=== PATIENT | female | born 1940 | race Two or more races ===

== ENCOUNTER 2022-01-15 12:54 | Inpatient (IN) | payer MEDICARE ==
[~2022-01-15] VITALS: Ht 175.3 cm; Wt 65.8 kg
[~2022-01-15 12:54] MED LIST: CITA40TA11 PO; DIGO125T PO; LEVO500T23 PO; LEVO75TA7 PO; LOSA100T31 PO; POTA10CA43 PO; TRAZ-182 PO; WARF2.5T85 PO
--- NOTE | 2022-01-15 13:14 | NUR ---
BIBRA99 FROM HOME, WEAK, UNABLE TO GET OUT OF BED X 2 DAYS PER BROTHER. PT IS A&OX2, ATTCHED TO MONITOR. WARM BLNKAET PROVIDED FOR COMFORT. AWAITING MD CHADWICK.
--- NOTE | 2022-01-15 13:19 | NUR ---
IV ESTABLISHED L AC 18G. LABS DRAW AND SENT.
--- NOTE | 2022-01-15 13:47 | NUR ---
URINE COLLECTED AND SENT
--- NOTE | 2022-01-15 13:47 | NUR ---
SEAN COLLECTED AND SENT
[2022-01-15 14:12] LABS: HEMATOCRIT 42 % (33-45); HEMOGLOBIN 14.1 g/dL (11.5-14.8); LYMPHOCYTES # (AUTO) 0.5 K/uL (0.8-4.8); LYMPHOCYTES % (AUTO) 2.5 % (20.0-44.0); MEAN CORPUSCULAR HGB CONC 34 g/dl (31.0-36.0); MEAN CORPUSCULAR VOLUME 92 fL (82-100); MONOCYTES # (AUTO) 0.9 K/uL (0.1-1.30); MONOCYTES % (AUTO) 4.7 % (2.0-12.0); NEUTROPHILS # (AUTO) 17.2 K/uL (1.8-8.9); NEUTROPHILS % (AUTO) 92.8 % (43.0-81.0); PLATELET COUNT (AUTO) 222 K/uL (150-450); RED BLOOD CELL COUNT(AUTO) 4.56 MIL/uL (4.0-5.2); WHITE BLOOD COUNT (AUTO) 18.5 K/uL (4.3-11.0)
--- NOTE | 2022-01-15 14:19 | NUR ---
DR HEATH AT BEDSIDE
[2022-01-15 14:29] LABS: ALANINE AMINOTRANSFERASE 11 U/L (12-78); ALBUMIN 3.2 g/dL (3.4-5.0); ALKALINE PHOSPHATASE 119 U/L (46-116); ASPARTATE AMINOTRANSFERASE 13 U/L (15-37); BILIRUBIN,DIRECT 0.5 mg/dL (0.0-0.2); BILIRUBIN,TOTAL 1.4 mg/dL (0.2-1.0); CARBON DIOXIDE 30 mmol/L (21-32); CHLORIDE 94 mmol/L (98-107); CREATININE 1.7 mg/dL (0.6-1.3); GLUCOSE 270 mg/dL (74-106); LIPASE 63 U/L (73-393); SODIUM SERUM 136 mmol/L (136-145); TOTAL PROTEIN, SERUM 8.2 g/dL (6.4-8.2); UREA NITROGEN, BLOOD 29 mg/dL (7-18)
[2022-01-15 14:31] LABS: POTASSIUM 2.2 mmol/L (3.5-5.1)
[2022-01-15 14:31] LABS: BILIRUBIN,URINE SMALL (NEGATIVE); COLOR,URINE DARK YELLOW (YELLOW); LEUKOCYTE ESTERASE ,URINE NEGATIVE (NEGATIVE); NITRITE, URINE NEGATIVE (NEGATIVE); PROTEIN,URINE 100 mg/dl (NEGATIVE); UGLUCOSE NEGATIVE (NEGATIVE)
[2022-01-15] MEDS ORDERED: BENA5TAB5 PO (14:45)
[2022-01-15] MEDS ORDERED: ESCI10TA PO (14:45)
[2022-01-15] MEDS ORDERED: MEMA1CAP3 PO (14:45)
[2022-01-15] MEDS ORDERED: POTASSIUM CL. PREMIX PERIPHER. 100 ML ONE ×2 (14:46→17:49)
[2022-01-15 15:02] LABS: THYROID STIMULATING HORMONE 0.842 uIU/mL (0.358-3.74)
[2022-01-15] MEDS: POTASSIUM CL. PREMIX PERIPHER. 50 ML IV SCH ×4 (15:02→18:11)
[2022-01-15 15:04] LABS: BACTERIA,URINE Few /HPF (None Seen); SQUAMOUS EPITHELIAL CELL,UR Rare /HPF (None Seen); WBC,URINE NONE SEEN /HPF (0-3)
[2022-01-15] MEDS ORDERED: POTASSIUM CHLORIDE 20 MEQ TAB.PRT.SR PO ONE ×2 (17:00→21:44)
[2022-01-15] MEDS ORDERED: ONDANSETRON HCL/PF 4 MG/2 ML VIAL IVP PRN (17:30)
[2022-01-15] MEDS ORDERED: TEMAZEPAM 15 MG CAPSULE PO PRN (17:30)
[2022-01-15] MEDS ORDERED: IV NS 0.9% 1,000 ML IV PRN (17:30)
[2022-01-15] MEDS ORDERED: MAGNESIUM HYDROXIDE 30 ML UDC PO PRN (17:30)
[2022-01-15] MEDS ORDERED: Z GUARD REMEDY 4 OZ OINT TP PRN (17:30)
[2022-01-15] MEDS ORDERED: MAG HYDROX/AL HYDROX/SIMETH 30 ML UDC PO PRN (17:30)
[2022-01-15] MEDS ORDERED: VANCOMYCIN 1 GM in IV D5W 250 ML IV ONE (18:00)
[2022-01-15] MEDS ORDERED: PIPERACILLIN /TAZOBACTAM 3.375 G in IV D5W 50 ML IV ONE (18:00)
[2022-01-15] MEDS ORDERED: IV NS 0.9% 1,000 ML BAG IV ONE (18:00)
[2022-01-15 18:04] LABS: ABG BASE EXCESS 5.4 mmol/L; ABG PH 7.514 (7.350-7.450); ABG PO2 71.7 mmHg (75.0-100.0); COHb 0.4 % (0.5-1.5); MetHb 0.5 % (0.0-1.5); O2Hb 94.4 % (94.0-97.0); SITE, ABG Right Radial; VENT MODE, BG ROOM AIR
--- NOTE | 2022-01-15 19:03 | NUR ---
HARDIK (NEPHEW AND POA) [phone]
--- NOTE | 2022-01-15 20:50 | NUR ---
REPORT GIVEN TO GABE
[2022-01-15 21:00] VITALS: BP 165/96
[2022-01-15] MEDS ORDERED: ENOXAPARIN SODIUM 30 MG/0.3 ML DISP.SYRIN SQ SCH (21:00)
[2022-01-15 21:03] VITALS: BP 165/96
--- NOTE | 2022-01-15 21:08 | NUR ---
PT TRANSPORTED TO ROOM ON RIBBON WEAVER VIA GURNEY VIA ACLS PROTOCOL IN STABLE CONDITION
--- NOTE | 2022-01-15 21:10 | NUR ---
TELE/MOTOR PATROL OPERATOR NOTE RECEIVED FROM Megha @0312 TO [id number] VIA ANGELA ACCOMPANIED BY RN/STAFF. DX: FAILURE TO THRIVE, HYPOKALEMIA, AND ARIS. PT AWAKE, A/OX2, WITH CONFUSION, KNOWS PERSON AND PLACE, DOES NOT KNOW WHY SHE'S IN THE HOSPITAL. REORIENTATION PROVIDED. PT ON ROOM AIR, O2 SAT 95%. RESPIRATIONS EVEN/UNLABORED. NOTED IV ACCESS ON L-FA #20G AND L-AC #18G BOTH INTACT/PATENT/FLUSHES WELL. SKIN WARM AND DRY; SLIGHT REDNESS ON SACRAL AREA, OTHERWISE, SKIN IS INTACT. PLACED ON TELE MONITOR, WITH READING OF AFIB CONTROLLED, HR 105. PT IN NO ACUTE DISTRESS. SAFETY MEASURES IN PLACE, BED IN LOWEST LOCKED POSITION, S/R UPX2, CALL LIGHT WITHIN REACH. WILL CONT TO MONITOR.
[2022-01-15] MEDS: IV NS 0.9% 1,000 ML IV PRN (21:35)
[2022-01-15] MEDS ORDERED: hydrALAZINE HCL IV 20 MG VIAL IV ONE (23:30)
--- NOTE | 2022-01-15 23:34 | NUR ---
RN NOTE PT'S BP UPON ADMISSION 165/96, UPON RE-CHECK: 188/100. ON-CALL DNP EJ WITH ORDER FOR HYDRALAZINE 10MG IV X1, NOTED AND ADMINISTERED ORDERED.
[2022-01-16] VITALS (7 sets, daily range): BP systolic 133–173; BP diastolic 84–107
--- NOTE | 2022-01-16 00:46 | NUR ---
RN NOTE BP 133/84, HR 146, SHOWING AFIB UNCONTROLLED ON MONITOR. STAT EKG ORDERED. PT AWAKE AND VERBAL, RESPIRATIONS EVEN/UNLABORED. WILL CONT TO MONITOR.
--- NOTE | 2022-01-16 01:11 | NUR ---
RN NOTE EKG DONE AND SENT TO ON-CALL KAROLINE EVANGELISTA
--- NOTE | 2022-01-16 01:50 | NUR ---
RN NOTE CALLED EPIC GROUP/PAGED ON-CALL BERINE PAGAN DNP
--- NOTE | 2022-01-16 02:27 | NUR ---
RN NOTE ON-CALL BERNIE PAGAN CALLED BACK, AND INFORMED RE PT HAVING A-FIB UNCONTROLLED 120'S-140'S AT THIS TIME. HE SAID, "I'LL TAKE CARE OF IT."
--- NOTE | 2022-01-16 03:20 | NUR ---
RN NOTE HR 103-117. PT SLEEPING SOUNDLY AT THIS TIME. WILL CONT TO MONITOR.
[2022-01-16 06:16] LABS: BASOPHILS % (AUTO) 0.1 % (0.0-2.0); EOSINOPHILS % (AUTO) 0.1 % (0.0-6.0); HEMATOCRIT 37 % (33-45); HEMOGLOBIN 12.3 g/dL (11.5-14.8); LYMPHOCYTES # (AUTO) 0.7 K/uL (0.8-4.8); LYMPHOCYTES % (AUTO) 4.8 % (20.0-44.0); MEAN CORPUSCULAR HGB CONC 34 g/dl (31.0-36.0); MEAN CORPUSCULAR VOLUME 92 fL (82-100); MONOCYTES # (AUTO) 1.4 K/uL (0.1-1.30); MONOCYTES % (AUTO) 9.3 % (2.0-12.0); NEUTROPHILS # (AUTO) 13.2 K/uL (1.8-8.9); NEUTROPHILS % (AUTO) 85.7 % (43.0-81.0); PLATELET COUNT (AUTO) 202 K/uL (150-450); RED BLOOD CELL COUNT(AUTO) 3.99 MIL/uL (4.0-5.2); WHITE BLOOD COUNT (AUTO) 15.5 K/uL (4.3-11.0)
[2022-01-16 06:55] LABS: CALCIUM, SERUM 9.1 mg/dL (8.5-10.1); CARBON DIOXIDE 26 mmol/L (21-32); CHLORIDE 103 mmol/L (98-107); GLUCOSE 114 mg/dL (74-106); MAGNESIUM 1.9 mg/dL (1.8-2.4); PHOSPHORUS 2.3 mg/dL (2.5-4.9); SODIUM SERUM 138 mmol/L (136-145); UREA NITROGEN, BLOOD 20 mg/dL (7-18)
--- NOTE | 2022-01-16 07:00 | NUR ---
RN NOTE PT RESTING IN BED, EASILY AROUSABLE TO STIMULI. A/OX2, WITH CONFUSION. REORIENTATION PROVIDED. RESPIRATIONS EVEN/UNLABORED. ON O2 @2LPM, O2 SAT 97%. TELE MONITOR READING AFIB, HR 105-115. PT IN NO ACUTE DISTRESS. FREQUENT VISUAL CHECK DONE. SAFETY MEASURES MAINTAINED.
[2022-01-16 07:03] LABS: POTASSIUM 2.8 mmol/L (3.5-5.1)
[2022-01-16 07:04] LABS: CREATINE KINASE, TOTAL 125 U/L (26-192); THYROID STIMULATING HORMONE 0.751 uIU/mL (0.358-3.74)
--- NOTE | 2022-01-16 07:05 | NUR ---
RN NOTE RECEIVED CRIT LAB RESULT K+ 2.8. WILL ENDORSE TO NEXT SHIFT NURSE.
--- NOTE | 2022-01-16 07:30 | NUR ---
RN CLINICAL APPEALS NOTES PT IN BED, ASLEEP, EASY TO AROUSE, ALERT AND VERBALLY RESPONSIVE, WITH PERIODS OF CONFUSION AND BEING FORGETFUL, CALL LIGHT WITHIN REACH, IV FLUIDS INFUSING WELL, NEEDS ATTENDED.
[2022-01-16] MEDS: ESCITALOPRAM OXALATE (10 MG) 10 MG TABLET PO SCH (09:15)
[2022-01-16] MEDS: LEVOTHYROXINE SODIUM 75 MCG TABLET PO SCH (09:15)
[2022-01-16] MEDS: PANTOPRAZOLE 40 MG TABLET.DR PO SCH (09:15)
[2022-01-16] MEDS ORDERED: POTASSIUM CHLORIDE 20 MEQ TAB.PRT.SR PO SCH (10:00)
[2022-01-16] MEDS ORDERED: NEUTRA PHOS 1 POWD.PACKET PO ONE (10:00)
--- NOTE | 2022-01-16 10:26 | NUR ---
RN NOTE PATIENT LAB RESULTS DETERMINE GRAM POSITIVE FOR COCCI CLUSTERS. MD NOTIFIED. WILL CONTINUE TO MONITOR.
--- NOTE | 2022-01-16 11:26 | NUR ---
SKI TOP TRIMMER NOTES PT IN BED, ASLEEP, EASY TO AROUSE, NOT IN DISTRESS, NOTED TO HAVE UNCONTROLLED AFIB WITH HR FLUCTUATING FROM 120s TO 140s, dR. RODRIGUEZ MADE AWARE, AWAITING FURTHER ORDERS.
[2022-01-16] MEDS: METOPROLOL TARTRATE 50 MG TABLET PO SCH ×3 (12:18→23:53)
[2022-01-16] MEDS: VANCOMYCIN 1 GM in IV D5W 250 ML IV SCH (13:36)
--- NOTE | 2022-01-16 18:30 | NUR ---
REVIEW RN NOTES PT IN BED, RESTING, NO COMPLAINT OF PAIN, NOT IN DISTRESS, TELE READING NOTES CONTROLLED AFIB WITH HR ON THE 90s, IV FLUIDS INFUSING WELL, PM CARE PROVIDED, PM MEDS GIVEN ORDERED, ALL NEEDS ATTENDED.
--- NOTE | 2022-01-16 19:42 | NUR ---
MINE CAR DISPATCHER NOTES PT IN BED, RESTING, NO COMPLAINT OF PAIN, NOT IN DISTRESS, TELE READING NOTES CONTROLLED AFIB WITH HR ON THE 90s, IV FLUIDS INFUSING WELL, PM CARE PROVIDED, WILL CONTINUE TO MONITOR.
[2022-01-16] MEDS: ENOXAPARIN SODIUM 60 MG/0.6 ML DISP.SYRIN SQ SCH (21:36)
[2022-01-17] VITALS: BP 186/88
[2022-01-17] MEDS: HYDROCODONE/APAP 5/325MG TABLET PO PRN (00:49)
--- NOTE | 2022-01-17 00:53 | NUR ---
cable television technician notes prn norco given for 6/10 pain on a numeric pain scale tolerated well. will continue to monitor.
[2022-01-17 00:58] VITALS: BP 160/85
[2022-01-17] MEDS: METOPROLOL TARTRATE 50 MG TABLET PO SCH ×4 (06:41→23:16)
--- NOTE | 2022-01-17 06:52 | NUR ---
MEAT APPRENTICE NOTES PT IN BED, RESTING, NO COMPLAINT OF PAIN, NOT IN DISTRESS, TELE READING NOTES CONTROLLED AFIB WITH HR ON THE 90s, IV FLUIDS INFUSING WELL, PM CARE PROVIDED, PM MEDS GIVEN ORDERED, PRN PAIN MANAGEMENT PROVIDED NEEDED. PT IV WAS INFILTRATED NEW IV ACCESS ESTABLISHED ON R HAND #22G MIDLINE WAS ORDERED AND PLACED ON RIGHT ELVIRA 18G DUE TO PTS NEED FOR CONTINUOUS ATX. NEEDS ATTENDED. WILL ENDORSE TO DAY SHIFT REGARDING RODRIGUEZ.
[2022-01-17 06:58] VITALS: BP 146/85
[2022-01-17 07:04] LABS: ALANINE AMINOTRANSFERASE 14 U/L (12-78); ALKALINE PHOSPHATASE 91 U/L (46-116); ASPARTATE AMINOTRANSFERASE 19 U/L (15-37); BILIRUBIN,TOTAL 1.2 mg/dL (0.2-1.0); CARBON DIOXIDE 27 mmol/L (21-32); CREATININE 0.9 mg/dL (0.6-1.3); GLUCOSE 104 mg/dL (74-106); PHOSPHORUS 3.7 mg/dL (2.5-4.9); TOTAL PROTEIN, SERUM 6.4 g/dL (6.4-8.2); UREA NITROGEN, BLOOD 19 mg/dL (7-18)
[2022-01-17 07:05] LABS: BASOPHILS % (AUTO) 0.1 % (0.0-2.0); EOSINOPHILS % (AUTO) 0.5 % (0.0-6.0); HEMATOCRIT 37 % (33-45); HEMOGLOBIN 12.4 g/dL (11.5-14.8); LYMPHOCYTES # (AUTO) 0.7 K/uL (0.8-4.8); LYMPHOCYTES % (AUTO) 4.2 % (20.0-44.0); MEAN CORPUSCULAR HGB CONC 33 g/dl (31.0-36.0); MEAN CORPUSCULAR VOLUME 93 fL (82-100); MONOCYTES # (AUTO) 1.6 K/uL (0.1-1.30); MONOCYTES % (AUTO) 9.8 % (2.0-12.0); NEUTROPHILS # (AUTO) 14.1 K/uL (1.8-8.9); NEUTROPHILS % (AUTO) 85.4 % (43.0-81.0); PLATELET COUNT (AUTO) 199 K/uL (150-450); RED BLOOD CELL COUNT(AUTO) 4.01 MIL/uL (4.0-5.2); WHITE BLOOD COUNT (AUTO) 16.5 K/uL (4.3-11.0)
[2022-01-17 07:26] LABS: CHLORIDE 103 mmol/L (98-107); POTASSIUM 3.4 mmol/L (3.5-5.1); SODIUM SERUM 136 mmol/L (136-145)
[2022-01-17 08:00] VITALS: BP 155/89
--- NOTE | 2022-01-17 08:00 | NUR ---
POLITICAL ORGANIZER OPENING NOTE RECEIVED PATIENT IN BED AND INTERMITTENTLY SLEEPING, YET EASY TO AROUSE. A/O X2-3 WITH CONFUSION, HOWEVER CAN BE EASILY REDIRECTED. NO S/SX OF DISTRESS OBSERVED OR REPORTED UPON ASSESSMENT. NO C/O PAIN. SAFETY MEASURES IN PLACE WITH HOB ELEVATED, BED IN LOWEST POSITION AND LOCKED. CALL LIGHT WITHIN REACH. WILL CONTINUE TO MONITOR.
[2022-01-17] MEDS: ASPIRIN 81 MG TAB.CHEW PO SCH (09:12)
[2022-01-17] MEDS: LEVOTHYROXINE SODIUM 75 MCG TABLET PO SCH (09:13)
[2022-01-17] MEDS: DONEPEZIL 5 MG TABLET PO SCH ×2 (09:13→17:07)
[2022-01-17] MEDS: MEMANTINE HCL 5 MG TABLET PO SCH ×2 (09:13→17:07)
[2022-01-17] MEDS: POTASSIUM CHLORIDE 20 MEQ TAB.PRT.SR PO SCH ×3 (09:13→11:25)
[2022-01-17] MEDS: PANTOPRAZOLE 40 MG TABLET.DR PO SCH (09:13)
[2022-01-17] MEDS: ESCITALOPRAM OXALATE (10 MG) 10 MG TABLET PO SCH (09:13)
[2022-01-17] MEDS: VALSARTAN 80 MG TABLET PO SCH (09:14)
[2022-01-17] MEDS: ENOXAPARIN SODIUM 60 MG/0.6 ML DISP.SYRIN SQ SCH ×2 (09:22→21:29)
[2022-01-17] MEDS ORDERED: POTASSIUM CHLORIDE 20 MEQ TAB.PRT.SR PO SCH (11:00)
[2022-01-17] MEDS: VANCOMYCIN 1 GM in IV D5W 250 ML IV SCH (14:17)
--- NOTE | 2022-01-17 18:50 | NUR ---
REAL TIME ANALYST CLOSING NOTE PATIENT REMAINS A/O X2. REMAINED IN BED THROUGHOUT SHIFT. NO S/SX OF DISTRESS OR SOB OBSERVED. IV ACCESS TO RFA MIDLINE INTACT AND PATENT. TOLERATED SCHEDULED ANTIBIOTIC WELL WITH NO S/SX OF ADVERSE REACTION. VITAL SIGNS ON SHIFT STABLE AND WNL. NS @ 100ML/HR RUNNING CONTINUOUSLY. PATIENT RECEIVED MRI SCAN W/O CONTRAST OF BRAIN. TOLERATED PROCEDURE WELL (SEE PHYSICIAN NOTES FOR RESULTS). SAFETY MEASURES REMAIN IN PLACE WITH BED AT LOWEST POSITION AND LOCKED. SIDERAIL UP X2. CALL LIGHT WITHIN REACH. WILL CONTINUE TO MONITOR.
[2022-01-17] MEDS: IV NS 0.9% 1,000 ML IV PRN (20:21)
[2022-01-17 20:36] VITALS: BP 158/107
--- NOTE | 2022-01-17 21:30 | NUR ---
ANTICOAGULANT H/H 12. PLT 199 No s/s of bleeding. Lovenox injection given, co-signed by SPIKE Garcia.
[2022-01-18 01:18] VITALS: BP 178/94
--- NOTE | 2022-01-18 01:43 | NUR ---
HIGH BP Elevated SBP 178/94. Patient no c/o dizziness. Notified TECHNICAL PUBLICATIONS WRITER Riana with new orders placed. Hydralazine 10mg q6H PRN SBP>160.
[2022-01-18] MEDS: hydrALAZINE HCL IV 20 MG VIAL IV PRN ×2 (02:09→20:54)
--- NOTE | 2022-01-18 02:11 | NUR ---
ELEVATED SBP Given Hydralazine 10mg IV, will reassess BP.
[2022-01-18 05:48] VITALS: BP 148/80
--- NOTE | 2022-01-18 06:18 | NUR ---
END OF SHIFT REPORT Patient is Alert to self only, confused. Afib Controlled/Uncontrolled in the Tele monitor HR 103-109. Hx. Afib. Patient no c/o of chest pain. NADIA midline patent and intact, IVF infusing. On IV abx. Afebrile during the shift. BP improved after Hydralazine IV, now 148/80. Turned and repositioned. Fall precaution maintained.
[2022-01-18 06:38] LABS: BASOPHILS % (AUTO) 0.1 % (0.0-2.0); EOSINOPHILS % (AUTO) 0.6 % (0.0-6.0); HEMATOCRIT 36 % (33-45); HEMOGLOBIN 11.8 g/dL (11.5-14.8); LYMPHOCYTES # (AUTO) 0.8 K/uL (0.8-4.8); LYMPHOCYTES % (AUTO) 5.2 % (20.0-44.0); MEAN CORPUSCULAR HGB CONC 33 g/dl (31.0-36.0); MEAN CORPUSCULAR VOLUME 92 fL (82-100); MONOCYTES # (AUTO) 1.4 K/uL (0.1-1.30); MONOCYTES % (AUTO) 8.7 % (2.0-12.0); NEUTROPHILS # (AUTO) 13.9 K/uL (1.8-8.9); NEUTROPHILS % (AUTO) 85.4 % (43.0-81.0); PLATELET COUNT (AUTO) 247 K/uL (150-450); RED BLOOD CELL COUNT(AUTO) 3.88 MIL/uL (4.0-5.2); WHITE BLOOD COUNT (AUTO) 16.3 K/uL (4.3-11.0)
[2022-01-18] MEDS: METOPROLOL TARTRATE 50 MG TABLET PO SCH ×4 (06:40→23:48)
[2022-01-18] MEDS: IV NS 0.9% 1,000 ML IV PRN ×2 (06:50→15:05)
[2022-01-18 07:16] LABS: BILIRUBIN,TOTAL 0.9 mg/dL (0.2-1.0); CALCIUM, SERUM 8.9 mg/dL (8.5-10.1); CREATININE 0.8 mg/dL (0.6-1.3); PHOSPHORUS 3.1 mg/dL (2.5-4.9); POTASSIUM 3.1 mmol/L (3.5-5.1); TOTAL PROTEIN, SERUM 6.1 g/dL (6.4-8.2)
--- NOTE | 2022-01-18 07:20 | NUR ---
THERMOSTATIC CONTROLS SUPERVISOR OPENING NOTE: PATIENT RECEIVED IN BED, AWAKE, A/O X2 (PERSON AND PLACE). ABLE TO MAKE SIMPLE NEEDS KNOWN. ON ROOM AIR, WITH NO S/S OF RESPIRATORY DISTRESS. PT. COMPLAINING OF ACHING PAIN OF 7/10 IN LOWER BACK. WILL GIVE NORCO 5-325. IV ACCESS ON NADIA MIDLINE, INTACT AND PATENT WITH NS RUNNING @ 100ML/HR. IV DRESSING C/D/I. WITH NO SIGNS OF INFECTION AND INFILTRATION. ON EXPERIMENTAL WORKER THAT READS AFIB UNCONTROLLED/CONTROLLED WITH HR OF 88 BPM. SAFETY AND FALL PRECAUTIONS IN PLACE: BED LOCKED AND IN LOWEST POSITION. SIDE RAILS UP X2. CALL LIGHT WITHIN EASY REACH REACH. BED ALARM ON. WILL CONTINUE TO MONITOR.
[2022-01-18] MEDS: PANTOPRAZOLE 40 MG TABLET.DR PO SCH (07:53)
[2022-01-18] MEDS: LEVOTHYROXINE SODIUM 75 MCG TABLET PO SCH (07:54)
[2022-01-18] MEDS: HYDROCODONE/APAP 5/325MG TABLET PO PRN (07:55)
[2022-01-18 08:00] VITALS: BP 163/90
[2022-01-18] MEDS: ENOXAPARIN SODIUM 60 MG/0.6 ML DISP.SYRIN SQ SCH (08:23)
[2022-01-18] MEDS: ASPIRIN 81 MG TAB.CHEW PO SCH (08:23)
[2022-01-18] MEDS: MEMANTINE HCL 5 MG TABLET PO SCH ×2 (08:23→17:15)
[2022-01-18] MEDS: DONEPEZIL 5 MG TABLET PO SCH ×2 (08:24→17:15)
[2022-01-18] MEDS: ESCITALOPRAM OXALATE (10 MG) 10 MG TABLET PO SCH (08:24)
[2022-01-18] MEDS: VALSARTAN 80 MG TABLET PO SCH (08:25)
[2022-01-18] MEDS: NITROGLYCERIN 30 GM TUBE TP SCH ×2 (09:58→21:29)
[2022-01-18] MEDS: POTASSIUM CHLORIDE 20 MEQ TAB.PRT.SR PO SCH ×3 (09:58→11:43)
[2022-01-18] MEDS: VANCOMYCIN 1 GM in IV D5W 250 ML IV SCH (15:05)
[2022-01-18 16:00] VITALS: BP 144/82
--- NOTE | 2022-01-18 19:13 | NUR ---
CERTIFIED PHARMACY TECHNICIAN CLOSING NOTE: PATIENT REMAINS IN BED, AWAKE, A/O X2 (PERSON AND PLACE). ABLE TO VERBALIZE NEEDS. ON ROOM AIR, BREATHING EVEN AND UNLABORED. NO COMPLAINS OF PAIN OR DISCOMFORT AT THIS TIME. IV ACCESS ON NADIA MIDLINE, INTACT AND FLUSHING WELL WITH NS RUNNING @ 100ML/HR. IV DRESSING C/D/I. WITH NO REDNESS, INFLAMMATION AND SIGNS OF INFILTRATION NOTED. CONTINUES TO BE ON TELE MONITOR THAT READS AFIB CONTROLLED WITH HR OF 89 BPM. SAFETY AND FALL PRECAUTIONS IN PLACE: BED LOCKED AND IN LOWEST POSITION. SIDE RAILS UP X2. CALL LIGHT WITHIN EASY REACH REACH. BED ALARM ON. WILL ENDORSE CONTINUITY OF CARE TO TOWN ADMINISTRATOR RN.
--- NOTE | 2022-01-18 19:56 | NUR ---
GUIDE CHANGER OPENING NOTE: RECEIVED PATIENT IN BED, AWAKE, A/O X2. NO S/S OF RESPIRATORY DISTRESS. DENIES PAIN. PATIENT BREATHING IS EVEN AND UNLABORED WITH EQUAL RISE FALL OF THE CHEST ON ROOM AIR. IV ACCESS ON NADIA MIDLINE, INTACT AND FLUSHING WELL WITH NS RUNNING @ 100ML/HR. SAFETY PRECAUTIONS IN PLACE, BED LOCKED AND IN LOWEST POSITION. SIDE RAILS UP X2 FOR SAFETY. BED ALARM ON AND CALL LIGHT WITHIN REACH REACH. WILL CONTINUE TO MONITOR.
[2022-01-18 20:00] VITALS: BP 163/91
--- NOTE | 2022-01-18 21:04 | NUR ---
ENTERPRISE SYSTEMS ARCHITECT NOTES: HYDRALAZINE 10MG/0.5ML ADMINISTERED FOR BP163/91, P89. 0.5ML PARTIAL DOSE WASTED.
[2022-01-18] MEDS: CEFAZOLIN 2 GM in IV D5W 100 ML IV SCH (21:27)
[2022-01-19] VITALS: BP 167/84
[2022-01-19 04:00] VITALS: BP 173/114
[2022-01-19] MEDS: IV NS 0.9% 1,000 ML IV PRN (04:43)
[2022-01-19] MEDS: CEFAZOLIN 2 GM in IV D5W 100 ML IV SCH ×3 (04:45→20:55)
[2022-01-19] MEDS: METOPROLOL TARTRATE 50 MG TABLET PO SCH ×3 (05:07→17:49)
--- NOTE | 2022-01-19 05:16 | NUR ---
INTERMEDIATE DESIGNER NOTES: PATIENT [id number]/114, P98. METOPROLOL 50MG ADMINISTERED PO. WILL CONTINUE TO MONITOR.
[2022-01-19 06:22] LABS: BASOPHILS % (AUTO) 0.2 % (0.0-2.0); EOSINOPHILS % (AUTO) 1.1 % (0.0-6.0); HEMATOCRIT 34 % (33-45); HEMOGLOBIN 11.3 g/dL (11.5-14.8); LYMPHOCYTES # (AUTO) 0.8 K/uL (0.8-4.8); LYMPHOCYTES % (AUTO) 5.4 % (20.0-44.0); MEAN CORPUSCULAR HGB CONC 34 g/dl (31.0-36.0); MEAN CORPUSCULAR VOLUME 91 fL (82-100); MONOCYTES # (AUTO) 1.4 K/uL (0.1-1.30); MONOCYTES % (AUTO) 9.7 % (2.0-12.0); NEUTROPHILS # (AUTO) 11.7 K/uL (1.8-8.9); NEUTROPHILS % (AUTO) 83.6 % (43.0-81.0); PLATELET COUNT (AUTO) 300 K/uL (150-450); RED BLOOD CELL COUNT(AUTO) 3.68 MIL/uL (4.0-5.2)
--- NOTE | 2022-01-19 06:44 | NUR ---
MICROSOFT WINDOWS ENGINEER CLOSING NOTES: PATIENT IN BED, AWAKE, A/O X2. NO S/S OF RESPIRATORY DISTRESS. DENIES PAIN. PATIENT BREATHING IS EVEN AND UNLABORED WITH EQUAL RISE FALL OF THE CHEST ON ROOM AIR. IV ACCESS ON NADIA MIDLINE, INTACT AND FLUSHING WELL WITH NS RUNNING @ 100ML/HR. ALL PATIENT CARE NEEDS HAVE BEEN MET ANTICIPATED. SAFETY PRECAUTIONS IN PLACE, BED LOCKED AND IN LOWEST POSITION. SIDE RAILS UP X2 FOR SAFETY. BED ALARM ON AND CALL LIGHT WITHIN REACH REACH. WILL CONTINUE TO MONITOR AND ENDORSE TO AM SHIFT.
--- NOTE | 2022-01-19 07:15 | NUR ---
COKE PRODUCTION HEATER OPENING NOTE: PATIENT RECEIVED IN BED, AWAKE, A/O X2 (PERSON AND PLACE). ABLE TO MAKE SIMPLE NEEDS KNOWN. ON ROOM AIR, BREATHING EVEN AND UNLABORED. DOES NOT COMPLAIN OF PAIN AT THIS TIME. IV ACCESS ON NADIA MIDLINE, INTACT AND PATENT WITH NS RUNNING @ 100ML/HR. IV DRESSING C/D/I. WITH NO SIGNS OF INFECTION AND INFILTRATION. ON PHARMACEUTICAL PROCESS ENGINEER THAT READS AFIB CONTROLLED WITH HR OF 79 BPM. SAFETY AND FALL PRECAUTIONS IN PLACE: BED LOCKED AND IN LOWEST POSITION. SIDE RAILS UP X2. CALL LIGHT WITHIN EASY REACH REACH. BED ALARM ON. WILL CONTINUE TO MONITOR.
[2022-01-19] MEDS: LEVOTHYROXINE SODIUM 75 MCG TABLET PO SCH (07:40)
[2022-01-19] MEDS: PANTOPRAZOLE 40 MG TABLET.DR PO SCH (07:40)
[2022-01-19 08:00] VITALS: BP 171/80
--- NOTE | 2022-01-19 08:01 | NUR ---
WOUND CARE CONSULT: PT PRESENTS WITH BLANCHABLE REDNESS TO SACRUM, PRESENT ON ADMISSION. PT IS INCONTINENT. DISCUSSED SKIN PROTECTION WITH NURSING STAFF. MD IN AGREEMENT WITH PLAN OF CARE.
[2022-01-19 08:06] LABS: *SPE A/G RATIO 0.6 (0.7-1.7); *SPE ALPHA-1-GLOBULIN 0.6 g/dL (0.0-0.4); *SPE ALPHA-2-GLOBULIN 1.1 g/dL (0.4-1.0); *SPE M-SPIKE Not Observed g/dL (Not Observed)
[2022-01-19 08:12] LABS: BILIRUBIN,TOTAL 0.6 mg/dL (0.2-1.0); CALCIUM, SERUM 8.6 mg/dL (8.5-10.1); CREATININE 0.9 mg/dL (0.6-1.3); PHOSPHORUS 2.5 mg/dL (2.5-4.9); TOTAL PROTEIN, SERUM 6.2 g/dL (6.4-8.2)
[2022-01-19] MEDS: ENOXAPARIN SODIUM 40 MG/0.4 ML DISP.SYRIN SQ SCH (08:37)
[2022-01-19] MEDS: ESCITALOPRAM OXALATE (10 MG) 10 MG TABLET PO SCH (08:38)
[2022-01-19] MEDS: NITROGLYCERIN 30 GM TUBE TP SCH ×2 (08:38→20:56)
[2022-01-19] MEDS: MEMANTINE HCL 5 MG TABLET PO SCH ×2 (08:38→17:50)
[2022-01-19] MEDS: VALSARTAN 80 MG TABLET PO SCH (08:38)
[2022-01-19] MEDS: ASPIRIN 81 MG TAB.CHEW PO SCH (08:38)
[2022-01-19] MEDS: DONEPEZIL 5 MG TABLET PO SCH ×2 (08:39→17:50)
[2022-01-19] MEDS: hydrALAZINE HCL 50 MG TABLET PO SCH ×3 (08:39→17:50)
--- NOTE | 2022-01-19 09:40 | NUR ---
MS RN NOTE: PT. HAD A HIGH BP OF 171/80 MMHG WITH A HR OF 74 BPM AT 0800. ADMINISTERED HYDRALAZINE 100MG PO AT 0839. RECHECKED BP AT 0940 AND IT IS NOW 133/72 MMHG WITH A HR OF 94 BPM. PT. HAS NO COMPLAINS OF DIZZINESS, HEADACHE OR ANY PAIN AT THIS TIME. WILL CONTINUE TO MONITOR.
[2022-01-19] MEDS ORDERED: POTASSIUM CHLORIDE 20 MEQ TAB.PRT.SR PO SCH (10:00)
--- NOTE | 2022-01-19 10:17 | NUR ---
MS RN NOTE: PT. HAS K OF 3. POTASSIUM CHLORIDE 60 MEQ PO GIVEN AT 1016. WILL CONTINUE TO MONITOR.
--- NOTE | 2022-01-19 12:40 | NUR ---
MS RN NOTE: PT. [place] AND CARLOS DYE AT BEDSIDE. WAS ADVISED THAT HE DECIDED TO BRING THE PT TO [facility] ARU ONCE STABLE FOR DISCHARGE. HE IS IN CONTACT WITH CM REGARDING DETAILS OF THE PLAN. QUESTIONS ABOUT PT.'S HOME MED (NAMZARIC) ANSWERED. HARDIK UNDERSTOOD.
[2022-01-19] MEDS ORDERED: VANCOMYCIN 1.25 GM in IV D5W 250 ML IV SCH (14:00)
[2022-01-19 16:00] VITALS: BP 168/97
--- NOTE | 2022-01-19 19:12 | NUR ---
MS RN CLOSING NOTE: PATIENT REMAINS IN BED, AWAKE, A/O X1. ABLE TO MAKE SIMPLE NEEDS KNOWN. ON ROOM AIR, WITH NO S/S OF RESPIRATORY DISTRESS. NOT VERBALIZING PAIN/DISCOMFORT AT THIS TIME. IV ACCESS ON NADIA MIDLINE, INTACT AND PATENT, SALINE LOCKED. IV DRESSING C/D/I, WITH NO SIGNS OF INFECTION AND INFILTRATION. PT. IS ON BED REST. BILATERAL BUTTOCKS REDNESS NOTED. WOUND CONSULT DONE AND TREATMENT DISCUSSED. TURNED AND REPOSITIONED Q2H. ON PUREWICK WITH URINE OUTPUT OF 300 ML, JOLENE CLEAR URINE THROUGHOUT THE SHIFT. SAFETY AND FALL PRECAUTIONS IN PLACE: BED LOCKED AND IN LOWEST POSITION. SIDE RAILS UP X2. CALL LIGHT AND PERSONAL BELONGINGS WITHIN EASY REACH REACH. BED ALARM ON. WILL ENDORSE CONTINUITY OF CARE TO SODA FOUNTAIN CLERK RN.
[2022-01-19 20:00] VITALS: BP 168/90
--- NOTE | 2022-01-19 21:36 | NUR ---
MS RN OPENING NOTE: PATIENT REMAINS IN BED, AWAKE, A/O X1. ABLE TO MAKE SIMPLE NEEDS KNOWN. ON ROOM AIR, WITH NO S/S OF RESPIRATORY DISTRESS. NOT VERBALIZING PAIN/DISCOMFORT AT THIS TIME. IV ACCESS ON NADIA MIDLINE, INTACT AND PATENT, SALINE LOCKED. IV DRESSING C/D/I, WITH NO SIGNS OF INFECTION AND INFILTRATION. PT. IS ON BED REST. BILATERAL BUTTOCKS REDNESS NOTED. WOUND CONSULT DONE AND TREATMENT DISCUSSED. TURNED AND REPOSITIONED Q2H. ON PUREWICK , JOLENE CLEAR URINE NOTED. SAFETY AND FALL PRECAUTIONS IN PLACE: BED LOCKED AND IN LOWEST POSITION. SIDE RAILS UP X2. CALL LIGHT AND PERSONAL BELONGINGS WITHIN EASY REACH REACH. BED ALARM ON. WILL CONTINUE TO MONITOR.
[2022-01-20] VITALS (8 sets, daily range): BP systolic 128–189; BP diastolic 79–99
[2022-01-20] MEDS: METOPROLOL TARTRATE 50 MG TABLET PO SCH ×4 (00:19→17:19)
[2022-01-20] MEDS: hydrALAZINE HCL IV 20 MG VIAL IV PRN (02:46)
[2022-01-20] MEDS: CEFAZOLIN 2 GM in IV D5W 100 ML IV SCH ×3 (04:04→20:56)
--- NOTE | 2022-01-20 06:50 | NUR ---
MS RN CLOSING NOTE: PATIENT REMAINS IN BED, AWAKE, A/O X1. ABLE TO MAKE SIMPLE NEEDS KNOWN. ON ROOM AIR, WITH NO S/S OF RESPIRATORY DISTRESS. NOT VERBALIZING PAIN/DISCOMFORT AT THIS TIME. IV ACCESS ON NADIA MIDLINE, INTACT AND PATENT, SALINE LOCKED. IV DRESSING C/D/I, WITH NO SIGNS OF INFECTION AND INFILTRATION. PT. IS ON BED REST. BILATERAL BUTTOCKS REDNESS NOTED. TURNED AND REPOSITIONED Q2H. ON PUREWICK , YELLOW CLEAR URINE NOTED 600 DURING CULINARY INTERNSHIP. SAFETY AND FALL PRECAUTIONS IN PLACE: BED LOCKED AND IN LOWEST POSITION. SIDE RAILS UP X2. CALL LIGHT AND PERSONAL BELONGINGS WITHIN EASY REACH REACH. BED ALARM ON. WILL ENDORSE CARE TO DAY SHIFT NURSE.
[2022-01-20 07:06] LABS: BASOPHILS % (AUTO) 0.2 % (0.0-2.0); EOSINOPHILS % (AUTO) 1.4 % (0.0-6.0); HEMATOCRIT 35 % (33-45); HEMOGLOBIN 11.8 g/dL (11.5-14.8); LYMPHOCYTES # (AUTO) 1.1 K/uL (0.8-4.8); LYMPHOCYTES % (AUTO) 7.5 % (20.0-44.0); MEAN CORPUSCULAR HGB CONC 34 g/dl (31.0-36.0); MEAN CORPUSCULAR VOLUME 92 fL (82-100); MONOCYTES # (AUTO) 1.6 K/uL (0.1-1.30); NEUTROPHILS # (AUTO) 11.4 K/uL (1.8-8.9); NEUTROPHILS % (AUTO) 79.9 % (43.0-81.0); PLATELET COUNT (AUTO) 387 K/uL (150-450); RED BLOOD CELL COUNT(AUTO) 3.83 MIL/uL (4.0-5.2); WHITE BLOOD COUNT (AUTO) 14.2 K/uL (4.3-11.0)
[2022-01-20 07:26] LABS: ALANINE AMINOTRANSFERASE 8 U/L (12-78); ALBUMIN 2.1 g/dL (3.4-5.0); ALKALINE PHOSPHATASE 105 U/L (46-116); ASPARTATE AMINOTRANSFERASE 27 U/L (15-37); BILIRUBIN,TOTAL 0.5 mg/dL (0.2-1.0); CALCIUM, SERUM 8.7 mg/dL (8.5-10.1); CARBON DIOXIDE 24 mmol/L (21-32); CHLORIDE 99 mmol/L (98-107); CREATININE 0.8 mg/dL (0.6-1.3); GLUCOSE 100 mg/dL (74-106); PHOSPHORUS 3.1 mg/dL (2.5-4.9); SODIUM SERUM 133 mmol/L (136-145); TOTAL PROTEIN, SERUM 6.7 g/dL (6.4-8.2); UREA NITROGEN, BLOOD 20 mg/dL (7-18)
[2022-01-20] MEDS: LEVOTHYROXINE SODIUM 75 MCG TABLET PO SCH (07:50)
[2022-01-20] MEDS: PANTOPRAZOLE 40 MG TABLET.DR PO SCH (07:50)
[2022-01-20] MEDS: hydrALAZINE HCL 50 MG TABLET PO SCH ×3 (09:04→16:18)
[2022-01-20] MEDS: MEMANTINE HCL 5 MG TABLET PO SCH ×2 (09:04→16:17)
[2022-01-20] MEDS: DONEPEZIL 5 MG TABLET PO SCH ×2 (09:05→16:17)
[2022-01-20] MEDS: ESCITALOPRAM OXALATE (10 MG) 10 MG TABLET PO SCH (09:05)
[2022-01-20] MEDS: ASPIRIN 81 MG TAB.CHEW PO SCH (09:06)
[2022-01-20] MEDS: VALSARTAN 80 MG TABLET PO SCH (09:07)
[2022-01-20] MEDS: ENOXAPARIN SODIUM 40 MG/0.4 ML DISP.SYRIN SQ SCH (09:10)
[2022-01-20] MEDS: NITROGLYCERIN 30 GM TUBE TP SCH ×2 (09:11→20:57)
[2022-01-20] MEDS: POTASSIUM CHLORIDE 20 MEQ TAB.PRT.SR PO SCH ×3 (12:09→13:37)
[2022-01-20] MEDS: ENSURE ENLIVE 237 ML LIQUID (VANILLA) PO SCH (16:05)
[2022-01-20] MEDS: ACETAMINOPHEN 325 MG TABLET PO PRN (17:27)
--- NOTE | 2022-01-20 19:29 | NUR ---
AIRPORT SALES AGENT CLOSING NOTES PATIENT IS LYING COMFORTABLE IN BED, AWAKE, A/O X2. NO S/S OF RESPIRATORY DISTRESS. DENIES PAIN. PATIENT HAS BEEN EXPERIENCING HYPERTENSIVE EPISODES, AND B/P MEDICATIONS WERE NOT EFFECTIVE TO CONTROL HER B/P. DOCTOR MALAIKA WAS INFORMED. PATIENT BREATHING IS EVEN AND UNLABORED ON ROOM AIR. IV ACCESS ON NADIA MIDLINE, INTACT AND FLUSHING WELL, SL. SAFETY PRECAUTIONS IN PLACED: BED LOCKED AND IN LOWEST POSITION. SIDE RAILS UP X2 FOR SAFETY. BED ALARM ON AND CALL LIGHT WITHIN REACH REACH. WILL ENDORSE TO INCOMING SHIFT FOR RODRIGUEZ.
--- NOTE | 2022-01-20 19:45 | NUR ---
MS RN NOTES RECEIVED LAYING COMFORTABLY ON BED,BREATHING NON LABORED,O2 SAT 97% ON ROOM AIR,A/O X1,CONFUSED,WITH NADIA MIDLINE FOR MEDS,BP 132/82 THIS TIME.REPOSITION PER PROTOCOL,CALL LIGHT IN REACH,NEEDS ANTICIPATED.
[2022-01-21 00:19] VITALS: BP 146/78
[2022-01-21] MEDS: METOPROLOL TARTRATE 50 MG TABLET PO SCH ×4 (00:29→17:32)
[2022-01-21] MEDS: CEFAZOLIN 2 GM in IV D5W 100 ML IV SCH ×3 (04:42→21:11)
--- NOTE | 2022-01-21 06:09 | NUR ---
MS RN NOTES MORNING BLOOD PRESSURE 172/95,WY-82,DUE LOPRESSOER 50MG PO GIVEN ORDERED.WILL RECHECK BP IN AN HOUR.
--- NOTE | 2022-01-21 06:44 | NUR ---
MS RN NOTES LAYING ON BED,CALM AND RELAX,DUE IV ABX GIVEN SCHEDULED,REPOSITION PER PROTOCOL.IN NO ACUTE DISTRESS.
[2022-01-21 07:19] LABS: BASOPHILS % (AUTO) 0.2 % (0.0-2.0); EOSINOPHILS % (AUTO) 2.3 % (0.0-6.0); HEMATOCRIT 33 % (33-45); HEMOGLOBIN 11.2 g/dL (11.5-14.8); LYMPHOCYTES # (AUTO) 1.3 K/uL (0.8-4.8); LYMPHOCYTES % (AUTO) 9.8 % (20.0-44.0); MEAN CORPUSCULAR HGB CONC 34 g/dl (31.0-36.0); MEAN CORPUSCULAR VOLUME 91 fL (82-100); MONOCYTES # (AUTO) 1.3 K/uL (0.1-1.30); NEUTROPHILS % (AUTO) 77.7 % (43.0-81.0); PLATELET COUNT (AUTO) 440 K/uL (150-450); RED BLOOD CELL COUNT(AUTO) 3.62 MIL/uL (4.0-5.2); WHITE BLOOD COUNT (AUTO) 12.8 K/uL (4.3-11.0)
[2022-01-21] MEDS: PANTOPRAZOLE 40 MG TABLET.DR PO SCH (07:44)
[2022-01-21] MEDS: LEVOTHYROXINE SODIUM 75 MCG TABLET PO SCH (07:44)
[2022-01-21] MEDS: ENSURE ENLIVE 237 ML LIQUID (VANILLA) PO SCH ×2 (07:45→16:22)
[2022-01-21 08:00] LABS: BILIRUBIN,TOTAL 0.4 mg/dL (0.2-1.0); CALCIUM, SERUM 8.2 mg/dL (8.5-10.1); CREATININE 0.9 mg/dL (0.6-1.3); MAGNESIUM 2.1 mg/dL (1.8-2.4); PHOSPHORUS 2.8 mg/dL (2.5-4.9); POTASSIUM 3.2 mmol/L (3.5-5.1)
--- NOTE | 2022-01-21 08:13 | NUR ---
STRUCTURAL IRON ERECTOR OPENING NOTES RECEIVED PATIENT IN BED, AWAKE, A/O X2. NO S/S OF RESPIRATORY DISTRESS. DENIES PAIN. PATIENT BREATHING IS EVEN AND UNLABORED ON ROOM AIR. IV ACCESS ON NADIA MIDLINE, INTACT AND FLUSHING WELL WITH NS RUNNING @ 100ML/HR. SAFETY PRECAUTIONS IN PLACED: BED LOCKED AND IN LOWEST POSITION. SIDE RAILS UP X2 FOR SAFETY. BED ALARM ON AND CALL LIGHT WITHIN REACH REACH. WILL CONTINUE TO MONITOR FOR RODRIGUEZ.
[2022-01-21] MEDS ORDERED: POTASSIUM CHLORIDE 20 MEQ TAB.PRT.SR PO SCH ×2 (09:00→10:30)
[2022-01-21] MEDS: ASPIRIN 81 MG TAB.CHEW PO SCH (09:45)
[2022-01-21] MEDS: DONEPEZIL 5 MG TABLET PO SCH ×2 (09:46→16:33)
[2022-01-21] MEDS: VALSARTAN 80 MG TABLET PO SCH (09:46)
[2022-01-21] MEDS: hydrALAZINE HCL 50 MG TABLET PO SCH ×3 (09:47→16:33)
[2022-01-21] MEDS: MEMANTINE HCL 5 MG TABLET PO SCH ×2 (09:47→16:33)
[2022-01-21] MEDS: ESCITALOPRAM OXALATE (10 MG) 10 MG TABLET PO SCH (09:47)
[2022-01-21] MEDS: ENOXAPARIN SODIUM 40 MG/0.4 ML DISP.SYRIN SQ SCH (09:51)
[2022-01-21] MEDS: NIFEdipine XL (30MG) 30 MG TAB PO SCH (10:05)
[2022-01-21] MEDS: NITROGLYCERIN 30 GM TUBE TP SCH ×2 (10:12→20:10)
--- NOTE | 2022-01-21 18:36 | NUR ---
FABRIC WORKER LEADER CLOSING NOTES PATIENT IN BED, AWAKE, A/O X2. NO S/S OF RESPIRATORY DISTRESS. DENIES PAIN. PATIENT BREATHING IS EVEN AND UNLABORED ON ROOM AIR. IV ACCESS ON NADIA MIDLINE, INTACT AND FLUSHING WELL WITH NS RUNNING @ 100ML/HR. SAFETY PRECAUTIONS IN PLACED: BED LOCKED AND IN LOWEST POSITION. SIDE RAILS UP X2 FOR SAFETY. BED ALARM ON AND CALL LIGHT WITHIN REACH REACH. WILL CONTINUE TO MONITOR FOR RODRIGUEZ.
--- NOTE | 2022-01-21 19:35 | NUR ---
MS RN OPENING NOTE PATIENT AWAKE IN BED, ALERT/ORIENTED X 2, PT DENIES PAIN AT THIS TIME. PT STABLE ON RA, NO S/S OF DISTRESS OR SOB NOTED, BREATHING EVEN AND UNLABORED, SPO2: 97%, PRN 2LPM OXYGEN VIA NASAL CANNULA. NADIA MIDLINE INTACT AND FLUSHING WELL, SALINE LOCKED. SAFETY MEASURES IN PLACE: CALL LIGHT WITHIN REACH, SIDE RAILS UP X 3, BED LOCKED IN LOWEST POSITION, HOB ELEVATED, BED ALARM ON. WILL CONTINUE TO MONITOR PATIENT
[2022-01-21 20:00] VITALS: BP 132/87
[2022-01-21] MEDS: ACETAMINOPHEN 325 MG TABLET PO PRN (20:08)
[2022-01-22] MEDS: METOPROLOL TARTRATE 50 MG TABLET PO SCH ×4 (00:08→17:58)
--- NOTE | 2022-01-22 02:17 | NUR ---
RT PT ON 2L NC. ASLEEP, NO RESP DISTRESS. SAT 96%. Addendum: 01/22/22 at 0218 by Tom Blake RT Amended: Links added.
[2022-01-22] MEDS: CEFAZOLIN 2 GM in IV D5W 100 ML IV SCH ×2 (05:28→13:09)
[2022-01-22 06:40] LABS: BASOPHILS % (AUTO) 0.3 % (0.0-2.0); HEMATOCRIT 37 % (33-45); HEMOGLOBIN 12.5 g/dL (11.5-14.8); LYMPHOCYTES # (AUTO) 1.2 K/uL (0.8-4.8); LYMPHOCYTES % (AUTO) 8.6 % (20.0-44.0); MEAN CORPUSCULAR HGB CONC 34 g/dl (31.0-36.0); MEAN CORPUSCULAR VOLUME 92 fL (82-100); MONOCYTES # (AUTO) 1.2 K/uL (0.1-1.30); MONOCYTES % (AUTO) 8.2 % (2.0-12.0); NEUTROPHILS # (AUTO) 11.4 K/uL (1.8-8.9); NEUTROPHILS % (AUTO) 80.9 % (43.0-81.0); PLATELET COUNT (AUTO) 470 K/uL (150-450); RED BLOOD CELL COUNT(AUTO) 3.99 MIL/uL (4.0-5.2); WHITE BLOOD COUNT (AUTO) 14.1 K/uL (4.3-11.0)
[2022-01-22 06:58] LABS: ALANINE AMINOTRANSFERASE 10 U/L (12-78); ALBUMIN 2.1 g/dL (3.4-5.0); ALKALINE PHOSPHATASE 102 U/L (46-116); ASPARTATE AMINOTRANSFERASE 23 U/L (15-37); BILIRUBIN,TOTAL 0.4 mg/dL (0.2-1.0); CALCIUM, SERUM 8.5 mg/dL (8.5-10.1); CARBON DIOXIDE 27 mmol/L (21-32); CHLORIDE 96 mmol/L (98-107); CREATININE 0.8 mg/dL (0.6-1.3); GLUCOSE 113 mg/dL (74-106); PHOSPHORUS 3.1 mg/dL (2.5-4.9); POTASSIUM 2.9 mmol/L (3.5-5.1); SODIUM SERUM 132 mmol/L (136-145); TOTAL PROTEIN, SERUM 6.4 g/dL (6.4-8.2); UREA NITROGEN, BLOOD 14 mg/dL (7-18)
--- NOTE | 2022-01-22 07:10 | NUR ---
MS RN CLOSING NOTE PATIENT SLEEPING IN BED, ALERT/ORIENTED X 1-2, PT HAS PERIODS OF CONFUSION. PT STABLE ON 2LPM OF OXYGEN VIA NASAL CANNULA, NO S/S OF DISTRESS OR SOB NOTED, BREATHING EVEN AND UNLABORED. NADIA MIDLINE INTACT AND FLUSHING WELL, SALINE LOCKED. MEDICATIONS GIVEN ORDERED, PT NEEDS MET THROUGHOUT SHIFT. PATIENT REPOSITION AND HYGIENE PROVIDED Q2H. BP WNL THIS SHIFT. SAFETY MEASURES IN PLACE: CALL LIGHT WITHIN REACH, SIDE RAILS UP X 3, BED LOCKED IN LOWEST POSITION, HOB ELEVATED, BED ALARM ON. ENDORSED TO DAY SHIFT NURSE FOR CONTINUITY OF CARE
--- NOTE | 2022-01-22 07:30 | NUR ---
MS RN OPENING NOTE RECEIVED PATIENT AWAKE IN BED, A/O X 2, NO PAIN AT THIS TIME. PT STABLE ON RA, NO S/S OF DISTRESS OR SOB NOTED, BREATHING EVEN AND UNLABORED, SPO2: 98%, PRN 2LPM OXYGEN VIA NASAL CANNULA. NADIA MIDLINE INTACT AND FLUSHING WELL, SALINE LOCKED. SAFETY MEASURES IN PLACE: CALL LIGHT WITHIN REACH, SIDE RAILS UP X 3, BED LOCKED IN LOWEST POSITION, HOB ELEVATED, BED ALARM ON. WILL CONTINUE TO MONITOR PATIENT
[2022-01-22] MEDS: PANTOPRAZOLE 40 MG TABLET.DR PO SCH (07:48)
[2022-01-22] MEDS: LEVOTHYROXINE SODIUM 75 MCG TABLET PO SCH (07:48)
[2022-01-22] MEDS: ENSURE ENLIVE 237 ML LIQUID (VANILLA) PO SCH ×2 (07:49→16:58)
[2022-01-22 08:00] VITALS: BP 152/92
[2022-01-22] MEDS: MEMANTINE HCL 5 MG TABLET PO SCH ×2 (09:10→16:16)
[2022-01-22] MEDS: ASPIRIN 81 MG TAB.CHEW PO SCH (09:10)
[2022-01-22] MEDS: ESCITALOPRAM OXALATE (10 MG) 10 MG TABLET PO SCH (09:10)
[2022-01-22] MEDS: DONEPEZIL 5 MG TABLET PO SCH ×2 (09:10→16:17)
[2022-01-22] MEDS: hydrALAZINE HCL 50 MG TABLET PO SCH ×3 (09:11→16:17)
[2022-01-22] MEDS: VALSARTAN 80 MG TABLET PO SCH (09:11)
[2022-01-22] MEDS: NIFEdipine XL (30MG) 30 MG TAB PO SCH (09:12)
[2022-01-22] MEDS: ENOXAPARIN SODIUM 40 MG/0.4 ML DISP.SYRIN SQ SCH (09:13)
[2022-01-22] MEDS: NITROGLYCERIN 30 GM TUBE TP SCH (09:17)
[2022-01-22] MEDS: POTASSIUM CHLORIDE 20 MEQ TAB.PRT.SR PO SCH ×5 (09:37→14:25)
[2022-01-22 10:07] LABS: BAND % (MANUAL) 4 % (0.0-5.0); EOSINOPHILS % (MANUAL) 6 % (0-4); LYMPHOCYTES % (MANUAL) 6 % (16-48); METAMYELOCYTES % 1 % (0-0); MONOCYTES % (MANUAL) 6 % (0-11.0); MYELOCYTES % 1 % (0-0); NEUTROPHILS % (MANUAL) 76 (42-76)
[2022-01-22] MEDS: ACETAMINOPHEN 325 MG TABLET PO PRN ×2 (11:26→17:41)
--- NOTE | 2022-01-22 13:38 | NUR ---
RN NOTES CALLED ID DR BETH. FOR ATB CLARIFICATION. STATED PATIENT SHOULD GET ATB FOR 4 WEEKS TILL FEBRUARY 16 AND EVERY WEEK CHECK THE KIDNEY FUNCTION. INFORMED CHARGE NURSE [place].
[2022-01-22 16:00] VITALS: BP 107/72
[2022-01-22 16:17] VITALS: BP 127/72
--- NOTE | 2022-01-22 17:30 | NUR ---
RN NOTES CALLED [facility] AND GAVE REPORT TO TORRI THE RN BY PHONE NUMBER [phone].
--- NOTE | 2022-01-22 19:40 | NUR ---
MS RN CLOSING NOTE PATIENT AWAKE IN BED, A/O X 2, NO PAIN AT THIS TIME. PT STABLE ON RA, NO S/S OF DISTRESS OR SOB NOTED, BREATHING EVEN AND UNLABORED, SPO2: 97%, PRN 2LPM OXYGEN VIA NASAL CANNULA. NADIA MIDLINE INTACT AND FLUSHING WELL, SALINE LOCKED. ALL DUE MEDS GIVEN ORDERED. ALL SAFETY MEASURES IN PLACE: CALL LIGHT WITHIN REACH, SIDE RAILS UP X 3, BED LOCKED IN LOWEST POSITION, HOB ELEVATED, BED ALARM ON. WILL ENDORSE FOR RODRIGUEZ. PATIENT WILL BE TRANSFERRED TO [facility] . PICH UP TIME 1999.
== END 2022-01-22 21:00 | DRG 682 ==
LOC: ER 13:09 → TELE 20:30 → MED 01-19 09:49
PROVIDERS: ADMIT Nurse Practitioner Acute Care
PROC: 05H933Z Insertion of Infusion Device into Right Brachial Vein, Percutaneous Approach (ICD-10-PCS; principal; 2022-01-17)
DX: N17.0 Acute kidney failure with tubular necrosis (principal); I21.4 Non-ST elevation (NSTEMI) myocardial infarction; E87.2 Acidosis; M62.82 Rhabdomyolysis; R78.81 Bacteremia; R62.7 Adult failure to thrive; E87.6 Hypokalemia; I48.91 Unspecified atrial fibrillation; Z20.822 Contact with and (suspected) exposure to COVID-19; I10 Essential (primary) hypertension; E03.9 Hypothyroidism, unspecified; E11.9 Type 2 diabetes mellitus without complications; Z79.899 Other long term (current) drug therapy; E88.09 Other disorders of plasma-protein metabolism, not elsewhere classified; G30.9 Alzheimer's disease, unspecified; F02.80 Dementia in other diseases classified elsewhere, unspecified severity, without behavioral disturbance, psychotic disturbance, mood disturbance, and anxiety; K62.89 Other specified diseases of anus and rectum; B95.61 Methicillin susceptible Staphylococcus aureus infection as the cause of diseases classified elsewhere; K44.9 Diaphragmatic hernia without obstruction or gangrene; F32.9 Major depressive disorder, single episode, unspecified
CPT/HCPCS: 36415; 36600; 70450-TC; 70551-TC; 71045-TC; 76770-TC; 80048-TC; 80053-TC; 80076-TC; 80202-TC; 81001; 82550-TC; 82553; 82803-TC; 83605-TC; 83690-TC; 83735-TC; 84100-TC; 84155; 84165; 84439-TC; 84443-TC; 84484-TC; 85025-TC; 87040-TC; 87081-TC; 92526; 92611-TC; 93307-TC; 94799-TC; 97110-TC; 97112-TC; 97530-TC; C9803; G0378; J0360; J0690; J1650; J2543; J3370; J3480; J7030; J7050; J7060